=== PATIENT | male | born 1995 | race Caucasian/White ===

== ENCOUNTER 2017-12-05 16:55 | Emergency (ER) | payer SELFPAY ==
[~2017-12-05] VITALS: Ht 175.3 cm; Wt 95.3 kg
[~2017-12-05 16:55] MED LIST: IBUP-81
[2017-12-05 17:07] VITALS: BP 129/78
--- NOTE | 2017-12-05 17:09 | NUR ---
PT AMBULATED TO E FOR TRIAGE
--- NOTE | 2017-12-05 17:11 | NUR ---
Pt has abrasion to L lower leg s/p metal frame falling on it. 0/10 pain. hx: none
[2017-12-05] MEDS ORDERED: BACITRACIN OINT 500 UNITS/GM PKT TP ONE ×2 (17:15→17:19)
[2017-12-05 17:57] VITALS: BP 129/70
--- NOTE | 2017-12-05 17:58 | NUR ---
Patient discharged with v/s stable. Written and verbal after care instructions given and explained. Patient alert, oriented and verbalized understanding of instructions. Ambulatory with steady gait. All questions addressed prior to discharge. ID band removed. Patient advised to follow up with PMD. Rx of NEOSPORIN given. Patient educated on indication of medication including possible reaction and side effects. Opportunity to ask questions provided and answered.
== END 2017-12-05 17:58 | disposition home or self-care (01) ==
LOC: MED 16:55
DX: S80.812A Abrasion, left lower leg, initial encounter (principal); Z79.899 Other long term (current) drug therapy; X58.XXXA Exposure to other specified factors, initial encounter; Y93.89 Activity, other specified; Y92.89 Other specified places as the place of occurrence of the external cause; Y99.8 Other external cause status
CPT/HCPCS: 90471; 90715; 99283

== ENCOUNTER 2019-09-28 18:37 | Emergency (ER) | payer SELFPAY ==
[~2019-09-28] VITALS: Ht 175.3 cm; Wt 95.3 kg
[2019-09-28 19:20] VITALS: BP 115/76
== END 2019-09-28 20:26 | disposition left against medical advice (07) ==
LOC: MED 18:37 → EEVIPCON 18:37 → MED 20:26
DX: U07.1 COVID-19 (principal); Z79.899 Other long term (current) drug therapy
CPT/HCPCS: 99283; U0003